=== PATIENT | female | born 1975 | race Caucasian/White ===

== ENCOUNTER → 2021-09-29 | Outpatient (CLI) | payer OTHER ==
[2021-09-30 11:24] LABS: Candida species (DNA Probe) Negative (NEGATIVE); G. vaginalis (DNA Probe) Positive (NEGATIVE); T. vaginalis (DNA Probe) Negative (NEGATIVE)
== END ==
LOC: LAB 19:55 → LAB SHORT 19:55
PROVIDERS: Physician Assistant
DX: N89.8 Other specified noninflammatory disorders of vagina (principal)
CPT/HCPCS: 87480; 87510; 87660

== ENCOUNTER → 2023-09-30 | Outpatient (CLI) | payer OTHER ==
[~2023-09-30] MED LIST: AVIANE-28 TABL1 EACH PO; INSULIN AS100 UNIT/7 SC
[2023-10-01 11:55] LABS: Candida species (DNA Probe) Negative (NEGATIVE); G. vaginalis (DNA Probe) Positive (NEGATIVE); T. vaginalis (DNA Probe) Negative (NEGATIVE)
== END ==
LOC: LAB SHORT 15:10 → LAB 15:10
PROVIDERS: Physician Assistant
DX: N76.0 Acute vaginitis (principal)
CPT/HCPCS: 87086; 87480; 87510; 87660

== ENCOUNTER 2023-10-12 18:33 | Inpatient (IN) | payer OTHER ==
[~2023-10-12] VITALS: Ht 154.9 cm; Wt 57.1 kg
[2023-10-12] MEDS ORDERED: INSULIN AS100 UNIT/7 SC (19:05)
[2023-10-12] MEDS ORDERED: AVIANE-28 TABL1 EACH PO (19:05)
[2023-10-12 20:28] LABS: Albumin/Globulin Ratio 0.4 (0.8-1.8); Bilirubin, Total 0.6 mg/dL (0.1-1.0); Bun/Creatinine Ratio 14.2 (12.0-20.0); Calcium, Blood 7.9 mg/dL (8.5-10.1); Creatinine, Blood 0.63 mg/dL (0.40-1.00); Globulin, Blood 5.2 g/dL (2.2-4.0); Potassium, Blood 3.2 mmol/L (3.5-5.5); Total Protein, Blood 7.2 g/dL (6.4-8.2)
[2023-10-12 23:21] VITALS: BP 134/75
[2023-10-13 04:22] VITALS: BP 120/71
[2023-10-13 05:23] LABS: BASOPHILS ABSOLUTE AUTO 0.04 K/mm3 (0.00-0.23); BASOPHILS PERCENT AUTO 0 % (0-2); EOSINOPHILS ABSOLUTE AUTO 0.14 K/mm3 (0.00-0.68); EOSINOPHILS PERCENT AUTO 1 % (0-6); Hematocrit 26.6 % (33.0-51.0); Hemoglobin 9.3 g/dL (11.5-16.0); IMMATURE GRAN ABSOLUTE AUTO 0.11 K/mm3 (0.00-0.10); IMMATURE GRAN PERCENT AUTO 1 % (0-1); LYMPHOCYTES ABSOLUTE AUTO 1.14 K/mm3 (0.84-5.20); LYMPHOCYTES PERCENT AUTO 10 % (21-46); MONOCYTES ABSOLUTE AUTO 0.88 K/mm3 (0.16-1.47); MONOCYTES PERCENT AUTO 8 % (4-13); Mean Corpuscular HGB 31.8 pg (26.0-34.0); Mean Corpuscular Volume 91 fL (80-100); Mean Platelet Volume 9.6 fL (9.1-12.4); NEUTROPHILS ABSOLUTE AUTO 8.99 K/mm3 (1.96-9.15); NEUTROPHILS PERCENT AUTO 80 % (41-73); Platelet Count 618 K/mm3 (150-400); RDW Standard Deviation 43.3 fL (35.1-46.3); Red Blood Cell Count 2.92 M/mm3 (3.80-5.20)
--- NOTE | 2023-10-13 05:51 | NUR ---
SHIFT SUMMARY PT ER ADMIT THIS SHIFT FOR PELVIC ABCESS. PLAN IS FOR SURIGICAL CONSULT, SURGEON NOTIFIED IN ER. PT COMPLAINS OF MINIMAL PAIN SINCE ARRIVING TO THE UNIT, AND DECLINES ANYTHING FOR PAIN. SHE DOES REPORT TENDERNESS TO LOWER ABD, BUT DENIES N/V. PT REPORTS SHE HAD SOME DIARRHEA AT HOME BUT NO EPISODES HERE. PT HAS BEEN NPO SINCE ARRIVING TO THE UNIT. IVF INFUSING. PT IS A TYPE 1 DIABETIC AND HAS A INSULIN PUMP THAT SHE MANAGES INDEPENDENTLY. DR. HINOJOSA MADE AWARE OF INSULIN PUMP, RECEIVED ORDER THAT IT WAS OK FOR PT TO USE HER OWN PUMP. BLOOD SUGARS ARE BEING MONITORED WITH OUR METER Q 6HR. PT RESTING IN BED AT THIS TIME. BED IN LOWEST POSITION, CALL LIGHT WITHIN REACH.
[2023-10-13 05:52] LABS: Albumin, Blood 1.7 g/dL (3.4-5.0); Albumin/Globulin Ratio 0.4 (0.8-1.8); Bilirubin, Total 0.5 mg/dL (0.1-1.0); Bun/Creatinine Ratio 12.8 (12.0-20.0); Calcium, Blood 7.1 mg/dL (8.5-10.1); Creatinine, Blood 0.63 mg/dL (0.40-1.00); Globulin, Blood 4.5 g/dL (2.2-4.0); Potassium, Blood 3.4 mmol/L (3.5-5.5); Total Protein, Blood 6.2 g/dL (6.4-8.2)
--- NOTE | 2023-10-13 06:29 | NUR ---
FEVER PT HAS FEVER THIS AM, MEDICATED WITH TORADOL FOR FEVER AND PAIN.
[2023-10-13 07:34] VITALS: BP 113/70
[2023-10-13 15:25] VITALS: BP 124/79
--- NOTE | 2023-10-13 17:40 | NUR ---
END OF SHIFT PT A&O X4. VSS. SPO2 > 92% ON RA. PER MD, NO PLAN FOR SURGERY AT THIS TIME. PT REPORTING LOWER ABD PAIN THIS AM WELL HEADACHE. PT REPORTING HEADACHE DUE TO LACK OF CAFFEINE, REPORTING SHE USUALLY DRINKS COFFEE IN THE MORNING. PT REPORTING PAIN DECREASE FROM 4/10 TO 1/10 AFTER PRN PAIN MEDICATION PER EMAR. PT DENYING HEADACHE AFTER CUP OF COFFEE ONCE MD ORDERED DIET. PT STARTED ON ADA DIET W/ CARB COUNT. PT W/ INSULIN PUMP, SELF ADMINISTERING INSULIN PER MD ORDER OKAY TO SELF ADMINISTER. PT INDEPENDENT TO BATHROOM, JUST NEEDING ASSISTANCE W/ CORD/LINE MANAGEMENT. NS GTT INFUSING PER ORDERS.
[2023-10-13 19:11] VITALS: BP 120/68
--- NOTE | 2023-10-14 01:19 | NUR ---
UPDATE ROOM PT MOVED FROM ROOM 224 TO 219 R/T NEED FOR PEDS ADMIT ROOM. PT AMBULATED TO ROOM INDEPENDENTLY, SBA R/T IV POLE. ALL PT BELONGINGS MOVED TO NEW ROOM. PT ORIENTED TO NEW ROOM. BED IN LOWEST POSITION, LIGHTS TURNED OFF, CALL LIGHT WITHIN REACH.
[2023-10-14 02:44] VITALS: BP 116/69
--- NOTE | 2023-10-14 05:04 | NUR ---
SHIFT SUMMARY S/P PELVIC ABSCESS. NO ACUTE CHANGES OVERNIGHT. VS WNL FOR PT. NO PLAN FOR SURGERY AT THIS TIME. ABX INFUSING PER EMAR. PT REPORTS LLQ ABD PAIN, MEDICATED PER EMAR & PT REPORTS RELIEF. PT SELF ADMINSTERING INSULIN VIA PERSONAL INSULIN PUMP, OKAY PER MD ORDER. BLOOD GLUCOSE TRENDING DOWNWARD THIS SHIFT. PT INDEPENDENT IN ROOM, SBA R/T IV POLE. CALL LIGHT WITHIN REACH, BED IN LOWEST POSITION, WILL REPORT TO DAY RN.
[2023-10-14 06:27] LABS: BASOPHILS ABSOLUTE AUTO 0.05 K/mm3 (0.00-0.23); BASOPHILS PERCENT AUTO 0 % (0-2); EOSINOPHILS ABSOLUTE AUTO 0.16 K/mm3 (0.00-0.68); EOSINOPHILS PERCENT AUTO 1 % (0-6); Hematocrit 28.7 % (33.0-51.0); Hemoglobin 9.7 g/dL (11.5-16.0); IMMATURE GRAN ABSOLUTE AUTO 0.15 K/mm3 (0.00-0.10); IMMATURE GRAN PERCENT AUTO 1 % (0-1); LYMPHOCYTES ABSOLUTE AUTO 0.95 K/mm3 (0.84-5.20); LYMPHOCYTES PERCENT AUTO 9 % (21-46); MONOCYTES ABSOLUTE AUTO 0.69 K/mm3 (0.16-1.47); MONOCYTES PERCENT AUTO 6 % (4-13); Mean Corpuscular HGB 31.3 pg (26.0-34.0); Mean Corpuscular HGB Conc 33.8 g/dL (31.5-36.5); Mean Corpuscular Volume 93 fL (80-100); Mean Platelet Volume 9.8 fL (9.1-12.4); NEUTROPHILS ABSOLUTE AUTO 9.13 K/mm3 (1.96-9.15); NEUTROPHILS PERCENT AUTO 82 % (41-73); Platelet Count 650 K/mm3 (150-400); RDW Coefficient Variation 13.2 % (11.7-14.2); RDW Standard Deviation 44.9 fL (35.1-46.3); White Blood Cell Count 11.13 K/mm3 (4.00-11.30)
[2023-10-14 06:51] LABS: Albumin, Blood 1.7 g/dL (3.4-5.0); Albumin/Globulin Ratio 0.4 (0.8-1.8); Bilirubin, Total 0.6 mg/dL (0.1-1.0); Bun/Creatinine Ratio 11.7 (12.0-20.0); Calcium, Blood 7.5 mg/dL (8.5-10.1); Creatinine, Blood 0.68 mg/dL (0.40-1.00); Globulin, Blood 4.5 g/dL (2.2-4.0); Potassium, Blood 3.6 mmol/L (3.5-5.5); Total Protein, Blood 6.2 g/dL (6.4-8.2)
[2023-10-14 08:04] VITALS: BP 120/64
--- NOTE | 2023-10-14 08:50 | NUR ---
PT USING INSULIN PUMP. BLOOD GLUCOSE 186 AND SHE TOOK IN 43 CARBS. TOTAL UNITS OF HOME INSULIN GIVEN 6.9. 1.6 UNITS FOR BLOOD GLUCOSE 5.3 FOR CARB COUNT.
[2023-10-14 15:24] VITALS: BP 128/64
[2023-10-14 20:03] VITALS: BP 116/71
--- NOTE | 2023-10-15 04:27 | NUR ---
SHIFT SUMMARY PT SLEPT T/O NIGHT. DENIES ANY PAIN. TOLERATING PO INTAKE. VOIDING. VSS. PLAN FOR POSSIBLE D/C TODAY WITH PO ABX. NO OTHER CONERNS AT THIS TIME. CALL LIGHT WITHIN REACH
[2023-10-15 04:48] VITALS: BP 124/75
[2023-10-15 05:07] LABS: BASOPHILS ABSOLUTE AUTO 0.06 K/mm3 (0.00-0.23); BASOPHILS PERCENT AUTO 1 % (0-2); EOSINOPHILS ABSOLUTE AUTO 0.37 K/mm3 (0.00-0.68); EOSINOPHILS PERCENT AUTO 3 % (0-6); Hematocrit 27.7 % (33.0-51.0); Hemoglobin 9.5 g/dL (11.5-16.0); IMMATURE GRAN ABSOLUTE AUTO 0.25 K/mm3 (0.00-0.10); IMMATURE GRAN PERCENT AUTO 2 % (0-1); LYMPHOCYTES ABSOLUTE AUTO 1.11 K/mm3 (0.84-5.20); LYMPHOCYTES PERCENT AUTO 9 % (21-46); MONOCYTES ABSOLUTE AUTO 0.81 K/mm3 (0.16-1.47); MONOCYTES PERCENT AUTO 6 % (4-13); Mean Corpuscular HGB 31.5 pg (26.0-34.0); Mean Corpuscular HGB Conc 34.3 g/dL (31.5-36.5); Mean Corpuscular Volume 92 fL (80-100); Mean Platelet Volume 9.4 fL (9.1-12.4); NEUTROPHILS ABSOLUTE AUTO 10.13 K/mm3 (1.96-9.15); NEUTROPHILS PERCENT AUTO 80 % (41-73); Platelet Count 614 K/mm3 (150-400); RDW Coefficient Variation 13.2 % (11.7-14.2); RDW Standard Deviation 44.1 fL (35.1-46.3); Red Blood Cell Count 3.02 M/mm3 (3.80-5.20); White Blood Cell Count 12.73 K/mm3 (4.00-11.30)
[2023-10-15 05:44] LABS: Albumin, Blood 1.6 g/dL (3.4-5.0); Albumin/Globulin Ratio 0.4 (0.8-1.8); Bilirubin, Total 0.5 mg/dL (0.1-1.0); Bun/Creatinine Ratio 13.9 (12.0-20.0); Calcium, Blood 7.6 mg/dL (8.5-10.1); Creatinine, Blood 0.72 mg/dL (0.40-1.00); Globulin, Blood 4.4 g/dL (2.2-4.0); Potassium, Blood 3.7 mmol/L (3.5-5.5)
[2023-10-15 07:08] VITALS: BP 118/69
[2023-10-15] MEDS ORDERED: VISBIOME 112.51 EACH PO (11:28)
[2023-10-15] MEDS ORDERED: AMOCLA875 PO (11:29)
[2023-10-15] MEDS ORDERED: Norco 5-325 Ta1 EACH PO (11:29)
--- NOTE | 2023-10-15 12:31 | NUR ---
DISCHARGE PT DISCHARGED HOME FROM UNIT AT APROX 1230. PT GIVEN WRITTEN AND VERBAL DC INSTRUCTIONS AND VERBALIZED UNDERSTANDING OF THESE INSTRCTIONS. IV REMOVED. PERSCRIPTIONS FAXED TO PHARMACY YESTERDAY AND PICKED UP PRIOR TO PT DC. WRITTEN SCRIPT FOR PAIN MEDICATION GIVEN TO PT.PT DECLINED WC TO CAR AMBULATED INDEPENDENTLY
== END 2023-10-15 12:37 | disposition home or self-care (01) | DRG 871 ==
LOC: ER 18:33 → SURS 22:10
PROVIDERS: Family Medicine; Student in an Organized Health Care Education/Training Program; ADMIT Internal Medicine
DX: A41.9 Sepsis, unspecified organism (principal); K65.1 Peritoneal abscess; L02.211 Cutaneous abscess of abdominal wall; N73.0 Acute parametritis and pelvic cellulitis; E87.1 Hypo-osmolality and hyponatremia; E87.6 Hypokalemia; E10.9 Type 1 diabetes mellitus without complications; D75.839 Thrombocytosis, unspecified; R74.01 Elevation of levels of liver transaminase levels; Z88.5 Allergy status to narcotic agent; Z88.8 Allergy status to other drugs, medicaments and biological substances; Z79.4 Long term (current) use of insulin; Z79.899 Other long term (current) drug therapy; Z98.51 Tubal ligation status; Z98.890 Other specified postprocedural states
CPT/HCPCS: 36415; 80053; 81025; 82947; 83605; 85025; 87040; 96361; 96365; 96367; 96375; 99284-25; A9270; J1650; J1885; J2543; J3480; J7030; J7050

== ENCOUNTER → 2023-10-12 | Outpatient (CLI) | payer OTHER ==
[~2023-10-12] MED LIST changes: +AMOCLA875 PO; +Norco 5-325 Ta1 EACH PO; +VISBIOME 112.51 EACH PO
[2023-10-12 14:24] LABS: BASOPHILS ABSOLUTE AUTO 0.04 K/mm3 (0.00-0.23); BASOPHILS PERCENT AUTO 0 % (0-2); EOSINOPHILS ABSOLUTE AUTO 0.05 K/mm3 (0.00-0.68); EOSINOPHILS PERCENT AUTO 0 % (0-6); Hematocrit 32.9 % (33.0-51.0); Hemoglobin 11.4 g/dL (11.5-16.0); IMMATURE GRAN ABSOLUTE AUTO 0.17 K/mm3 (0.00-0.10); IMMATURE GRAN PERCENT AUTO 1 % (0-1); LYMPHOCYTES ABSOLUTE AUTO 0.63 K/mm3 (0.84-5.20); LYMPHOCYTES PERCENT AUTO 4 % (21-46); MONOCYTES PERCENT AUTO 5 % (4-13); Mean Corpuscular HGB 31.5 pg (26.0-34.0); Mean Corpuscular HGB Conc 34.7 g/dL (31.5-36.5); Mean Corpuscular Volume 91 fL (80-100); Mean Platelet Volume 9.5 fL (9.1-12.4); NEUTROPHILS ABSOLUTE AUTO 12.62 K/mm3 (1.96-9.15); NEUTROPHILS PERCENT AUTO 89 % (41-73); Platelet Count 706 K/mm3 (150-400); RDW Coefficient Variation 12.7 % (11.7-14.2); RDW Standard Deviation 42.4 fL (35.1-46.3); Red Blood Cell Count 3.62 M/mm3 (3.80-5.20); White Blood Cell Count 14.21 K/mm3 (4.00-11.30)
[2023-10-13 09:46] LABS: Candida species (DNA Probe) Negative (NEGATIVE); G. vaginalis (DNA Probe) Positive (NEGATIVE); T. vaginalis (DNA Probe) Negative (NEGATIVE)
== END ==
LOC: LAB SHORT 14:10 → LAB 14:10
PROVIDERS: Physician Assistant
DX: R10.2 Pelvic and perineal pain (principal); R10.9 Unspecified abdominal pain
CPT/HCPCS: 85025; 87070; 87205; 87480; 87510; 87660